=== PATIENT | female | born 1955 | race Hispanic/Latino ===

== ENCOUNTER → 2018-04-06 | Outpatient (CLI) | payer OTHER, MEDICARE | END | disposition home or self-care (01) | LOC: OIH 07:59 | PROVIDERS: ATTEND Family Medicine | DX: R05 Cough (principal) | CPT/HCPCS: 71046 ==

== ENCOUNTER → 2018-09-29 | Outpatient (CLI) | payer OTHER, MEDICARE | END | disposition home or self-care (01) | LOC: OIH 15:29 | PROVIDERS: ATTEND Family Medicine | DX: M25.552 Pain in left hip (principal); M54.2 Cervicalgia; M54.40 Lumbago with sciatica, unspecified side | CPT/HCPCS: 72040; 72100; 73502 ==

== ENCOUNTER → 2019-08-18 | Outpatient (CLI) | payer OTHER, MEDICARE | END | disposition home or self-care (01) | LOC: RAH 09:32 | PROVIDERS: ATTEND Family Medicine | DX: I11.9 Hypertensive heart disease without heart failure (principal) | CPT/HCPCS: 93306 ==

== ENCOUNTER → 2020-03-07 | Outpatient (CLI) | payer OTHER, MEDICARE | END | disposition home or self-care (01) | LOC: OIH 11:22 | PROVIDERS: ATTEND Family Medicine | DX: M25.512 Pain in left shoulder (principal) | CPT/HCPCS: 73030 ==

== ENCOUNTER 2022-04-29 09:39 | Emergency (ER) | payer OTHER, MEDICARE ==
[~2022-04-29] VITALS: Ht 152.4 cm; Wt 77.1 kg
[2022-04-29 10:12] VITALS: BP 143/65
[2022-04-29] MEDS ORDERED: KETOROLAC 60 MG VIAL (30MG/ML) IM ONE (10:30)
[2022-04-29] MEDS ORDERED: IBUP-2070 PO (11:22)
[2022-04-29] MEDS ORDERED: ACET-2079 PO (11:22)
== END 2022-04-29 11:36 | disposition home or self-care (01) ==
LOC: EDH 09:39
DX: E11.9 Type 2 diabetes mellitus without complications (principal); E78.00 Pure hypercholesterolemia, unspecified; I10 Essential (primary) hypertension; Z79.1 Long term (current) use of non-steroidal anti-inflammatories (NSAID); S20.211A Contusion of right front wall of thorax, initial encounter; X58.XXXA Exposure to other specified factors, initial encounter; Y93.89 Activity, other specified; Y92.89 Other specified places as the place of occurrence of the external cause; Y99.8 Other external cause status
CPT/HCPCS: 99284; 71045; 71100; 96372; J1885

== ENCOUNTER 2023-08-29 13:53 | Emergency (ER) | payer OTHER, MEDICARE ==
[~2023-08-29 13:53] MED LIST: ACET-2079 PO; IBUP-2070 PO
[2023-08-29 14:56] VITALS: BP 168/90; PULSE 76; RESP 14
== END 2023-08-29 20:10 | disposition left against medical advice (07) ==
LOC: EDH 13:53
DX: M25.552 Pain in left hip (principal); Z53.21 Procedure and treatment not carried out due to patient leaving prior to being seen by health care provider
CPT/HCPCS: 99281

== ENCOUNTER 2024-11-28 06:24 | Emergency (ER) | payer OTHER, MEDICARE ==
[~2024-11-28] VITALS: Ht 157.5 cm; Wt 72.6 kg
--- NOTE | 2024-11-28 06:34 | ERN ---
General Chief Complaint: Knee Injury/Swelling Stated Complaint: RIGHT KNEE PAIN Time Seen by MD: 06:27 Source: patient History of Present Illness Initial Comments Patient comes in with complaint of pain to the right knee. Last night she was walking in the kitchen and felt a pop in her knee and has been having worsening pain since. Per EMS this morning she was able to help and bear weight a bit bed patient reports pain with bearing weight as well as flexion of the knee. She did not fall and happened while she was walking. No other injury. Allergies: Coded Allergies: No Known Drug Allergies (Unverified Allergy, Unknown, 04/29/22) Home Meds Active Scripts Acetaminophen with Codeine (Acetaminophen-Cod #3 Tablet) 1 Each Tablet, 1 TAB PO Q6H PRN for PAIN LEVEL 7 TO 10, #15 TAB Prov:SANDRA BELCHER MD 04/29/22 Ibuprofen (Ibuprofen) 600 Mg Tablet, 600 MG PO Q6H PRN for PAIN, #30 TAB Prov:SANDRA BELCHER MD 04/29/22 Past Medical History Past Medical History: Diabetes-Type II, High Cholesterol, Hypertension, Sciatica Past Surgical History: Hysterectomy Social History Social History: Negative, Lives with family Female( History) History: Not Applicable ROS Dictation Ten systems reviewed and negative except as noted in HPI Physical Exam Physical Exam Dictation GEN: non toxic, NAD HEENT: atrumatic, PERRL, EOMI, conjunctivae normal NECK: Soft supple nontender Heart RRR, no murmurs Chest: No deformity Lungs: Lungs clear to auscultation Ab: Soft nondistended nontender Back: No midline step-offs. No gross deformity. No CVA tenderness : m/s: Moving all four extremities. No gross deformity. I do not appreciate any gross ligamentous instability of the knee. No anterior posterior instability. Valgus and varus stress also unremarkable. No significant effusion. No significant crepitus felt on exam. Able to flex passively. Neuro: CN 2-12 intact. Moving all four extremities. Psych: Cooperative MDM Multiple differentials considered. We will get x-ray imaging. toradol IM for pain Patient care transitioned to Dr. Kaba for final disposition and completion of evaluation. Patient handed off at shift change repeat eval stable neurovascularly intact distally, ACL PCL intact, pain with movement, x-ray stable no acute abnormalities noted reviewed and interpreted by me Patient placed in a knee immobilizer and referred to orthopedics for further evaluation crutches training provided by nursing staff. ED Course Orders Procedure Category Date Status Time Knee 3vws Rt RAD 11/28/24 Taken 06:27 Ketorolac PHA 11/28/24 Complete Tromethamine 30mg/Ml 07:00 Place Knee Imobilizer CPOE 11/28/24 Transmitted To: (Er) 07:49 Current Medications Medications (Trade) Dose Ordered Sig/Rakesh Route PRN Reason Start Time Stop Time Status Last Admin Dose Admin Ketorolac Tromethamine (toRADol) 30 mg ONCE ONCE IM 11/28/24 07:00 11/28/24 07:01 DC 11/28/24 07:39 Vital Signs Date Time Temp Pulse Resp B/P (MAP) Pulse Ox O2 Delivery O2 Flow Rate FiO2 11/28/24 06:25 98.1 97 16 154/84 98 Room Air 0 DX & DISP Disposition: Discharge Departure Impression: Primary Impression: Knee pain Additional Impression: Internal derangement of right knee Condition: Stable Scripts Cyclobenzaprine HCl (Cyclobenzaprine HCl) 5 Mg Tablet 5 MG PO BID for 5 Days, #10 TAB Prov: PAOLA KABA MD 11/28/24 Referrals: NELDA ZHU MD (PCP) YODIT RAHMAN MD Nov 28, 2024 06:34 PAOLA KABA MD Nov 28, 2024 07:53
[2024-11-28] MEDS: ketOROlac 30MG VIAL (30MG/ML) IM ONE (07:39)
[2024-11-28] MEDS ORDERED: CYCL5TAB3 PO (07:52)
[2024-11-28 08:13] VITALS: BP 145/79; PULSE 89; RESP 16; TEMP 98; O2SAT 98
--- NOTE | 2024-11-28 08:17 | NUR ---
PAIN RELIEF GIVEN ORDERED.PAIN KNEE IMMOBILEZER APPLIED,CRUTCHES ADJUSTED TO HER SIZE.SHE DEMONSTRATED ABILITY OF USE. SHE WAS WHEELED TO LOBBY IN A WHEELCHAIR TO WAIT FOR HER RIDE.
--- NOTE | 2024-11-28 08:39 | HMCIMG ---
KNEE 3VWS RT REASON: pain TECHNIQUE: 3 views were obtained. FINDINGS: There is no evidence of fracture or dislocation. There is no joint effusion. The soft tissues appear unremarkable. There is no evidence of a radiopaque foreign body. There is mild medial joint space narrowing consistent with early osteoarthritis. IMPRESSION: No acute findings.
== END 2024-11-28 08:20 | disposition home or self-care (01) ==
LOC: EDH 06:24
DX: M25.561 Pain in right knee (principal); M23.91 Unspecified internal derangement of right knee; E11.9 Type 2 diabetes mellitus without complications; E78.00 Pure hypercholesterolemia, unspecified; I10 Essential (primary) hypertension; Z90.710 Acquired absence of both cervix and uterus
CPT/HCPCS: 99284; 29505; 96372; 73562; J1885